=== PATIENT | female | born 1980 | race Asian ===

== ENCOUNTER 2020-01-11 18:13 | Emergency (ER) | payer OTHER ==
[~2020-01-11] VITALS: Ht 165.1 cm; Wt 43.1 kg
--- NOTE | 2020-01-11 18:35 | NUR ---
Pt ambulated with steady gait to ER, from home. Clear speech. AO X 4. Calm and cooperative. c/o: Mental breakdown, withdrawing off opioids. Denies suicidal and homicidal ideation. Respirations are even and unlabored. Denies cardiac discomfort, chest pain, cap refill >3. No GI/ complaints. Skin intact. Bed in lowest position, side rails x 2. Safety and Fall precautions maintained.
[2020-01-11] MEDS ORDERED: HYDROMORPHONE HCL 2 MG TABLET PO ONE (19:00)
[2020-01-11] MEDS ORDERED: ONDANSETRON ODT 4 MG TAB.RAPDIS SL ONE (19:00)
[2020-01-11 19:04] LABS: BASOPHILS % (AUTO) 0.4 % (0.0-2.0); EOSINOPHILS % (AUTO) 0.2 % (0.0-7.0); HEMATOCRIT 36.4 % (31.2-41.9); LYMPHOCYTES # (AUTO) 1.8 K/uL (20.0-40.0); LYMPHOCYTES % (AUTO) 22.8 % (20.5-51.5); MEAN CORPUSCULAR HEMOGLOBIN 29.2 uug (24.7-32.8); MEAN CORPUSCULAR HGB CONC 33 g/dL (32.3-35.6); MEAN CORPUSCULAR VOLUME 88.8 fL (75.5-95.3); MONOCYTES # (AUTO) 0.5 K/uL (2.0-10.0); MONOCYTES % (AUTO) 6.7 % (0.0-11.0); NEUTROPHILS # (AUTO) 5.4 K/uL (1.8-8.9); NEUTROPHILS % (AUTO) 69.9 % (38.5-71.5); PLATELET COUNT (AUTO) 357 K/uL (179-408); WHITE BLOOD COUNT (AUTO) 7.8 K/uL (3.8-11.8)
[2020-01-11 19:05] LABS: *BLOOD, URINE 3+ (NEGATIVE); *COLOR,URINE DARK YELLOW (YELLOW); *KETONES,URINE 1+ (NEGATIVE); *UROBILINOGEN,URINE 0.2 E.U./dl (NORMAL); LEUKOCYTE ESTERASE ,URINE NEGATIVE (NEGATIVE); NITRITE, URINE NEGATIVE (NEGATIVE); PH,URINE 5.5 (5.0-8.0); UGLUCOSE NEGATIVE (NEGATIVE)
[2020-01-11 19:07] LABS: *BILIRUBIN,URIN 1+ (NEGATIVE); *CLARITY,URINE HAZY (CLEAR)
[2020-01-11] MEDS ORDERED: HYDROMORPHONE HCL 2 MG TABLET ONE (19:09)
[2020-01-11] MEDS ORDERED: ONDANSETRON ODT 4 MG TAB.RAPDIS ONE (19:09)
[2020-01-11 19:11] LABS: BACTERIA,URINE FEW /HPF (NONE SEEN)
[2020-01-11 19:11] LABS: CARBON DIOXIDE 30 mmol/L (21-32); CHLORIDE 105 mmol/L (98-107); CREATININE 0.8 mg/dL (0.6-1.3); GLUCOSE 98 mg/dL (74-106); POTASSIUM 4.1 mmol/L (3.5-5.1); UREA NITROGEN, BLOOD 16 mg/dL (7-18)
[2020-01-11 19:12] LABS: *URINE HCG, QUAL NEGATIVE (NEGATIVE); MUCUS,URINE MANY /LPF (0-FEW); SQUAMOUS EPITHELIAL CELL,UR MANY /HPF (NONE SEEN)
--- NOTE | 2020-01-11 19:15 | NUR ---
Recieved patient from [facility], patient in [facility] in no acute distress. Patient c/o of generalized pain and states she may be withdrawing from opiates, patient states she goes to a methadone clinic and sees a pain specialist. Patient request for food, food provided per patient request. Tolerated well. Patient in no acute distress. Pending clearance, per previous nurse, patient is requesting to be admitted voluntarily.
--- NOTE | 2020-01-11 19:15 | NUR ---
Warm hand off given to incoming shift RN. Pt remains in stable condition. Meds given, tolerated well.
[2020-01-11 19:17] LABS: ETHANOL < 3 MG/DL (0-0)
[2020-01-11 19:19] LABS: *AMPHETAMINE, URINE NEGATIVE (NEGATIVE); *BARBITURATE, URINE NEGATIVE (NEGATIVE); *CANNABINOID, URINE NEGATIVE (NEGATIVE); *COCCAINE, URINE NEGATIVE (NEGATIVE); *OPIATE, URINE NEGATIVE (NEGATIVE); *PHENCYCLIDINE SCREEN,URINE NEGATIVE (NEGATIVE)
[2020-01-11 19:23] LABS: ALANINE AMINOTRANSFERASE 21 U/L (14-59); ALKALINE PHOSPHATASE 55 U/L (50-136); ASPARTATE AMINOTRANSFERASE 21 U/L (15-37); BILIRUBIN,DIRECT 0.3 mg/dL (0.0-0.2); BILIRUBIN,TOTAL 1.1 mg/dL (0.2-1.0); TOTAL PROTEIN, SERUM 7.2 g/dL (6.4-8.2)
[2020-01-11 19:26] LABS: ACETAMINOPHEN < 2.0 ug/mL (10-30)
--- NOTE | 2020-01-11 19:55 | NUR ---
[facility] Per Belen instructed me to fax referral to [phone] and that she will send it to [place]. Requested phone number for [facility], per Belen they are the intake for [facility]. Documents faxed.
--- NOTE | 2020-01-11 20:00 | NUR ---
pt requested another sandwich. Another sandwich provided.
--- NOTE | 2020-01-11 20:59 | NUR ---
Spoke with Kristi at [facility], [facility], per Kristi the clinicals are still under review and her charge nurse is still in report. made aware.
--- NOTE | 2020-01-11 21:03 | NUR ---
Recieved call from Kristi at [facility], per Kristi she did not meet admission criteria because "clinicals don't she she is withdrawing" and "you have to wait at least [address] Soria made aware.
--- NOTE | 2020-01-11 21:30 | NUR ---
Per Dr. Soria, patient is stable for discharge. DC instructions and prescriptions given and reviewed with patient, verbalized understanding. Left ER in stable condition.
[2020-01-11 21:35] VITALS: BP 111/65
== END 2020-01-11 21:31 | disposition home or self-care (01) ==
LOC: ER 18:16
DX: F32.9 Major depressive disorder, single episode, unspecified (principal); F41.9 Anxiety disorder, unspecified; F11.23 Opioid dependence with withdrawal; G89.29 Other chronic pain
CPT/HCPCS: 36415; 80048; 80076; 80307; 81000; 81001; 84703; 85025; 99283; G0480 ×2; G0481; A4663; Q0162